=== PATIENT | female | born 1940 | race Caucasian/White ===

== ENCOUNTER 2020-02-23 19:50 | Inpatient (IN) | payer MEDICARE ==
[2020-02-23] MEDS ORDERED: SODIUM CHLORIDE 0.9% 1,000 ML IV STA (20:33)
[2020-02-23] MEDS ORDERED: METOCLOPRAMIDE 5 MG/ML 2 ML VIAL IVP STA (20:33)
--- NOTE | 2020-02-23 20:39 | ED ---
General Adult HPI - General Chief complaint: Weakness Stated complaint: Weakness Time Seen by Provider: 02/23/20 19:57 Source: EMS Mode of arrival: EMS Limitations: no limitations - History of Present Illness Initial comments: Dictation was produced using [employer] dictation software. please excuse any grammatical, word or spelling errors. This patient was cared for during a federal and state declared state of emergency secondary to Covid 19 Chief Complaint: 79-year-old female presents with nausea and weakness History of Present Illness: Is a 79-year-old female presents today with acute onset nausea and vomiting with weakness. Patient is a poor historian. She does report some mild epigastric abdominal tenderness. Patient was brought in by EMS after patient's called. Patient states that she feels as though the room is spinning she feels very sick to her stomach. The ROS documented in this emergency department record has been reviewed and confirmed by me. Those systems with pertinent positive or negative responses have been documented in the HPI. All other systems are other negative and/or noncontributory. PHYSICAL EXAM: General Impression: Alert and oriented x3, acute distress secondary to nausea, eyes closed HEENT: Normocephalic atraumatic, extra-ocular movements intact, pupils equal and reactive to light bilaterally, dry mucous membranes Cardiovascular: Heart regular rate and rhythm Chest: Able to complete full sentences, no retractions, no tachypnea Abdomen: abdomen soft, non-tender, non-distended, no organomegaly Musculoskeletal: Pulses present and equal in all extremities, no peripheral jonathan ma Motor: no focal deficits noted Neurological: CN II-XII grossly intact, right eye intranuclear ophthalmoplegia, no nystagmus Skin: Intact with no visualized rashes ED course: 79-year-old female presents with nausea, vomiting and acute weakness. Vital signs upon arrival are within acceptable limits. More history was obtained from who is currently in the waiting room by the nurse. reports the patient acutely became nauseous and vomiting. She had not eat dinner. She started on new medication that he does not know the name of it is. was interviewed at bedside. He states that patient was doing usual state of health when after dinner she became very nauseated. I did show patient's right eye deficit. He states that this is new and he's never noticed it before. According to interview with patient and it isn't entirely clear when patient's visual disturbance or medial gaze palsy of the right eye began. Laboratory evaluation obtained. CBC unremarkable. Coag panel is negative. Metabolic panel shows lactic acidosis 2.1. BUN of 20 with a creatinine 0.69. Rest of metabolic panel and labs are within acceptable limits. CT brain and CT angios the head and neck was obtained showing no acute processes. Case is discussed with Dr. Lam who is bulk station agent for neurology. His recommendation was to contact stroke neurologist for possible TPA administration. Case is discussed with Dr. Moscoso who didn't recommend TPA administration at this time considering that there is no clear time of onset when visual disturbance occurred. Furthermore, patient's primary complaint was nausea. At this point given the information we have after talking patient and risks outweigh the benefits of TPA administration. Patient be admitted with consultation to neurology. Patient given a dose of aspirin. Then antiemetics with improvement of her symptoms. EKG interpretation: Ventricular rate 83, normal sinus rhythm,. Interval 132, QRS 90, QTC 493. No ND prolongation, no QTC prolongation, no ST or T-wave changes noted. No old EKG for comparison. There is a Q-wave and inverted T in lead 3. Overall, this EKG is nonspecific - Related Data Allergies Allergy/AdvReac Type Severity Reaction Status Date / Time No Known Allergies Allergy Verified 02/23/20 20:02 Review of Systems ROS Statement: Those systems with pertinent positive or pertinent negative responses have been documented in the HPI. ROS Other: All systems not noted in ROS Statement are negative. Past Medical History Past Medical History: No Reported History History of Any Multi-Drug Resistant Organisms: None Reported Past Surgical History: No Surgical Hx Reported Past Psychological History: No Psychological Hx Reported Smoking Status: Never smoker Past Alcohol Use History: None Reported Past Drug Use History: None Reported General Exam Limitations: no limitations Course Vital Signs 02/23/20 19:59 Temperature 97 F L Pulse Rate 94 Respiratory 18 Rate Blood Pressure 162/72 O2 Sat by Pulse 96 Oximetry Medical Decision Making - Lab Data Result diagrams: 02/23/20 20:16 02/23/20 20:16 Lab Results 02/23/20 02/23/20 02/23/20 Range/Units 20:16 20:16 20:16 WBC 8.3 (3.8-10.6) k/uL RBC 4.90 (3.80-5.40) m/uL Hgb 14.9 (11.4-16.0) gm/dL Hct 43.3 (34.0-46.0) % MCV 88.3 (80.0-100.0) fL MCH 30.3 (25.0-35.0) pg MCHC 34.3 (31.0-37.0) g/dL RDW 12.5 (11.5-15.5) % Plt Count 224 (150-450) k/uL MPV 7.8 Neutrophils % 80 % Lymphocytes % 11 % Monocytes % 6 % Eosinophils % 1 % Basophils % 1 % Neutrophils # 6.6 (1.3-7.7) k/uL Lymphocytes # 0.9 L (1.0-4.8) k/uL Monocytes # 0.5 (0-1.0) k/uL Eosinophils # 0.1 (0-0.7) k/uL Basophils # 0.0 (0-0.2) k/uL PT 10.7 (9.0-12.0) sec INR 1.0 (<1.2) APTT 23.2 (22.0-30.0) sec Sodium 137 (137-145) mmol/L Potassium 4.0 (3.5-5.1) mmol/L Chloride 108 H (98-107) mmol/L Carbon Dioxide 20 L (22-30) mmol/L Anion Gap 9 mmol/L BUN 20 H (7-17) mg/dL Creatinine 0.69 (0.52-1.04) mg/dL Est GFR (CKD-EPI)AfAm >90 (>60 ml/min/1.73 sqM) Est GFR (CKD-EPI)NonAf 84 (>60 ml/min/1.73 sqM) Glucose 151 H (74-99) mg/dL Plasma Lactic Acid Prashant (0.7-2.0) mmol/L Calcium 9.3 (8.4-10.2) mg/dL Ionized Calcium Sandi 4.7 (4.5-5.3) mg/dL Magnesium 1.7 (1.6-2.3) mg/dL Total Bilirubin 1.1 (0.2-1.3) mg/dL AST 29 (14-36) U/L ALT 16 (4-34) U/L Alkaline Phosphatase 106 (38-126) U/L Troponin I (0.000-0.034) ng/mL Total Protein 7.1 (6.3-8.2) g/dL Albumin 4.0 (3.5-5.0) g/dL Urine Color Urine Appearance (Clear) Urine pH (5.0-8.0) Ur Specific Needles (1.001-1.035) Urine Protein (Negative) Urine Glucose (UA) (Negative) Urine Ketones (Negative) Urine Blood (Negative) Urine Nitrite (Negative) Urine Bilirubin (Negative) Urine Urobilinogen (<2.0) mg/dL Ur Leukocyte Esterase (Negative) Urine RBC (0-5) /hpf Ur Squamous Epith Cells (0-4) /hpf Urine Bacteria (None) /hpf Urine Mucus (None) /hpf 02/23/20 02/23/20 02/23/20 Range/Units 20:16 20:16 20:41 WBC (3.8-10.6) k/uL RBC (3.80-5.40) m/uL Hgb (11.4-16.0) gm/dL Hct (34.0-46.0) % MCV (80.0-100.0) fL MCH (25.0-35.0) pg MCHC (31.0-37.0) g/dL RDW (11.5-15.5) % Plt Count (150-450) k/uL MPV Neutrophils % % Lymphocytes % % Monocytes % % Eosinophils % % Basophils % % Neutrophils # (1.3-7.7) k/uL Lymphocytes # (1.0-4.8) k/uL Monocytes # (0-1.0) k/uL Eosinophils # (0-0.7) k/uL Basophils # (0-0.2) k/uL PT (9.0-12.0) sec INR (<1.2) APTT (22.0-30.0) sec Sodium (137-145) mmol/L Potassium (3.5-5.1) mmol/L Chloride (98-107) mmol/L Carbon Dioxide (22-30) mmol/L Anion Gap mmol/L BUN (7-17) mg/dL Creatinine (0.52-1.04) mg/dL Est GFR (CKD-EPI)AfAm (>60 ml/min/1.73 sqM) Est GFR (CKD-EPI)NonAf (>60 ml/min/1.73 sqM) Glucose (74-99) mg/dL Plasma Lactic Acid Prashant 2.1 H* (0.7-2.0) mmol/L Calcium (8.4-10.2) mg/dL Ionized Calcium Sandi (4.5-5.3) mg/dL Magnesium (1.6-2.3) mg/dL Total Bilirubin (0.2-1.3) mg/dL AST (14-36) U/L ALT (4-34) U/L Alkaline Phosphatase (38-126) U/L Troponin I <0.012 (0.000-0.034) ng/mL Total Protein (6.3-8.2) g/dL Albumin (3.5-5.0) g/dL Urine Color Yellow Urine Appearance Cloudy H (Clear) Urine pH 7.0 (5.0-8.0) Ur Specific Needles 1.016 (1.001-1.035) Urine Protein Trace H (Negative) Urine Glucose (UA) Negative (Negative) Urine Ketones Negative (Negative) Urine Blood Negative (Negative) Urine Nitrite Negative (Negative) Urine Bilirubin Negative (Negative) Urine Urobilinogen <2.0 (<2.0) mg/dL Ur Leukocyte Esterase Large H (Negative) Urine RBC 29 H (0-5) /hpf Ur Squamous Epith Cells 17 H (0-4) /hpf Urine Bacteria Rare H (None) /hpf Urine Mucus Many H (None) /hpf Disposition Clinical Impression: Internuclear ophthalmoplegia of right eye, Nausea Disposition: ADMITTED IP TO THIS HOSP Condition: Fair Referrals: Daniel Suarez MD [Primary Care Provider] - 1-2 days Decision Time: 22:27
[2020-02-23 20:50] LABS: Basophils % (A) 1 %; Eosinophils # (A) 0.1 k/uL (0-0.7); Eosinophils % (A) 1 %; HCT 43.3 % (34.0-46.0); HGB 14.9 gm/dL (11.4-16.0); Lymphocytes # (A) 0.9 k/uL (1.0-4.8); Lymphocytes % (A) 11 %; MCH 30.3 pg (25.0-35.0); MCHC 34.3 g/dL (31.0-37.0); MCV 88.3 fL (80.0-100.0); Mean Platelet Volume 7.8; Monocytes # (A) 0.5 k/uL (0-1.0); Monocytes % (A) 6 %; Neutrophils # (A) 6.6 k/uL (1.3-7.7); Neutrophils % (A) 80 %; Platelet Count 224 k/uL (150-450); RDW 12.5 % (11.5-15.5); WBC 8.3 k/uL (3.8-10.6)
[2020-02-23 20:56] LABS: Ionized Calcium 4.7 mg/dL (4.5-5.3)
[2020-02-23 21:02] LABS: ALT 16 U/L (4-34); AST 29 U/L (14-36); African American GFR (CKD) >90 (>60 ml/min/1.73 sqM); Alkaline Phosphatase 106 U/L (38-126); Anion Gap 9 mmol/L; Blood Urea Nitrogen 20 mg/dL (7-17); Calcium 9.3 mg/dL (8.4-10.2); Carbon Dioxide 20 mmol/L (22-30); Chloride 108 mmol/L (98-107); Glucose 151 mg/dL (74-99); Magnesium 1.7 mg/dL (1.6-2.3); Non-African American GFR(CKD) 84 (>60 ml/min/1.73 sqM); Partial Thromboplastin Time 23.2 sec (22.0-30.0); Prothrombin Time 10.7 sec (9.0-12.0); Sodium 137 mmol/L (137-145); Total Bilirubin 1.1 mg/dL (0.2-1.3); Total Protein 7.1 g/dL (6.3-8.2)
[2020-02-23 21:08] LABS: Appearance,Urine Cloudy (Clear); Bacteria,Urine Rare /hpf; Bilirubin,Urine Negative (Negative); Blood,Urine Negative (Negative); Color,Urine Yellow; Glucose,Urine (UA) Negative (Negative); Ketones,Urine Negative (Negative); Leukocyte Esterase,Urine Large (Negative); Mucus,Urine Many /hpf; Nitrite,Urine Negative (Negative); Protein,Urine Trace (Negative); RBC,Urine 29 /hpf (0-5); Specific Gravity,Urine 1.016 (1.001-1.035); Squamous Epithelial Cell,Urine 17 /hpf (0-4); Urobilinogen,Urine <2.0 mg/dL (<2.0)
--- NOTE | 2020-02-23 21:26 | CT ---
EXAMINATION TYPE: CT brain wo con DATE OF EXAM: 02/23/2020 COMPARISON: None HISTORY: Dizziness and weakness CT DLP: 1114.8 mGycm Automated exposure control for dose reduction was used. There is some cerebral cortical atrophy. There is mild white matter hypodensity in the frontal lobes bilaterally. There is no mass effect nor midline shift. There is no sign of intracranial hemorrhage. Calvarium is intact. IMPRESSION: Mild atrophy. Mild chronic small vessel ischemia. No acute intracranial abnormality.
--- NOTE | 2020-02-23 21:35 | CT ---
EXAMINATION TYPE: CT angio head neck DATE OF EXAM: 02/23/2020 COMPARISON: None HISTORY: Dizziness and weakness CT DLP: 598.6 mGycm Automated exposure control for dose reduction was used. CONTRAST: Performed with IV Contrast, patient injected with 65 mL of Isovue 370. There are 3-D post processed images. There is normal branching pattern of the great vessels on the aortic arch. There is bilateral arteria l flow in the subclavian arteries. There is arterial flow in the common internal and external carotid arteries bilaterally. There is wide patency of the carotid artery bifurcations. There is arterial fl ow in both vertebral arteries. There is arterial flow in the vertebrobasilar artery system. There is no evidence of carotid or vertebral artery aneurysm or dissection. There is arterial flow in the anterior middle and posterior cerebral arteries. There is no evidence o f intracranial aneurysm or neovascularity. There is no mass effect. I see no evidence of hemodynamic stenosis. IMPRESSION: Negative CT angiogram of the neck. Negative CT angiogram of the brain.
[2020-02-23] MEDS ORDERED: ONDANSETRON 4 MG/2 ML VIAL IVP STA (21:55)
[2020-02-23] MEDS ORDERED: ASPIRIN 81 MG PO STA (22:12)
[2020-02-23] MEDS ORDERED: NALOXONE 0.4 MG/ML 1 ML VIAL IV PRN (22:27)
[2020-02-23] MEDS: SODIUM CHLORIDE 0.9% 1,000 ML IV SCH (22:53)
[2020-02-24] MEDS ORDERED: ACETAMINOPHEN TAB 500 MG TAB PO PRN (00:33)
[2020-02-24] MEDS: MEMANTINE 10 MG TAB PO SCH ×2 (10:28→20:58)
[2020-02-24] MEDS: ATORVASTATIN 20 MG TAB PO SCH (10:28)
[2020-02-24] MEDS: amLODIPine 5 MG TAB PO SCH (10:28)
--- NOTE | 2020-02-24 12:19 | P.CNNES ---
History of Present Illness Consult date: 02/24/20 Requesting physician: Brandon Galan Reason for Consult: Internuclear ophthalmoplegia History of Present Illness: Patient is a 79-year-old female came to the hospital yesterday by ambulance at 7:50 PM for dizziness and near syncopal spell. 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 She was at work when at around 5:30 PM all of a sudden she felt weird, as something was wrong. She felt lightheaded, as if he'll pass out. She called her and her boss, and someone called the ambulance and patient was brought to the hospital. Vital signs on arrival was blood pressure 162/72, pulse [address] head showed mild atrophy. Mild chronic small vessel ischemia. CTA of head and neck was negative. No aneurysm or stenosis. No dissection. EKG shows normal sinus rhythm. CBC is normal. Chem-20 normal. Troponin negative. UA shows large amount of leukocyte esterase and rare bacteria. Patient takes amlodipine 5 mg, Lipitor 20 mg and memantine 10 mg twice a day at home. Patient denied any diplopia, did feel nauseous but no vomiting. She denied any slurred speech facial droop, denies any focal numbness tingling or weakness. Patient states her symptoms lasted for about 10-20 minutes. While in the ER, patient was noted to have right MARIO. Stroke neurologist was consulted, but patient was not considered a candidate for TPA, as the duration of onset of sym ptoms was not very clear, (patient's primary complaint was nausea rather than visual disturbance) and the risks were felt to outweigh the benefit. Patient never smoked, does not drink alcohol. She does have hypertension but denies diabetes. She does not take any antiplatelet medication at home. Patient tells me that about 1-1/2 months ago she was at [facility] in [place], [place] where she underwent "a lot of tests on her head" and she does not know the results. Patient does not remember why those tests were performed. I spoke to patient's son Vicente medina on the phone, who informed me that the visual symptoms are very new. She has no issues with the vision at all. He also told me that patient was seen by a neurologist Dr. Arlette Lewis in [place], [place], who diagnosed her with cognitive impairment. MRI was performed the results unavailable. Review of Systems Patient complains of mild headache, but denies any slurred speech facial droop numbness tingling focal weakness. Denies any chest pain shortness of breath wheezing or cough. Patient denies double vision although while examination she did have double vision as mentioned. No abdominal pain or diarrhea Past Medical History Past Medical History: No Reported History History of Any Multi-Drug Resistant Organisms: None Reported Past Surgical History: No Surgical Hx Reported Past Psychological History: No Psychological Hx Reported Smoking Status: Never smoker Past Alcohol Use History: None Reported Past Drug Use History: None Reported Medications and Allergies Home Medications Medication Instructions Recorded Confirmed Type Atorvastatin Calcium [Lipitor] 20 mg PO DAILY 02/23/20 02/23/20 History Cyanocobalamin [Vitamin B-12 1,000 mcg IM Q14D 02/23/20 02/23/20 History Injection] Ergocalciferol (Vitamin D2) 1,250 mcg PO Q7D 02/23/20 02/23/20 History [Vitamin D2] Memantine HCl 10 mg PO BID 02/23/20 02/24/20 History amLODIPine [Norvasc] 5 mg PO DAILY 02/23/20 02/23/20 History Allergies Allergy/AdvReac Type Severity Reaction Status Date / Time No Known Allergies Allergy Verified 02/23/20 20:02 Physical Examination - Vital Signs Vital Signs: Vital Signs Temp Pulse Resp BP Pulse Ox 02/24/20 06:30 98.8 F 68 17 139/74 99 02/23/20 22:00 78 17 136/85 99 02/23/20 19:59 97 F L 94 18 162/72 96 Intake and Output 02/23/20 02/24/20 02/24/20 22:59 06:59 14:59 Other: Weight 108.862 kg On examination patient is an elderly female, in no acute distress. Patient is alert and awake fairly well oriented. Speech and language functions are normal. Attention and concentration is intact, fund of knowledge is somewhat limited, as she does not remember details. May have probable underlying cognitive impairment. Detailed cognitive functions testing deferred. On cranial nerve examination pupils are round and reactive to light. No Ho rner's. No ptosis. Patient does have definite right MARIO. Patient gets double vision in the primary gaze and sometimes with a lateral gaze to the left. Visual carbajal are full on confrontation. Face is symmetric, tongue protrudes to the midline. Palatal elevation sensation normal. Hearing and shoulder shrug normal. Facial sensations normal. On muscle strength testing there is no pronator drift and the strength is normal in arms and legs distally and proximally. Reflexes are 1+ and plantars are downgoing. Sensory touch is equal with no neglect. No ataxia for [id number] testing. Tone and bulk of muscles normal. Gait deferred. There is no obvious bruit, S1 and S2 audible, chest is clear, abdominal soft nontender. No peripheral edema. Peripheral pulses present. Results - Laboratory Findings CBC and BMP: 02/23/20 20:16 02/23/20 20:16 Abnormal Lab Findings: Abnormal Labs 02/23/20 02/23/20 02/23/20 20:16 20:16 20:16 Lymphocytes # 0.9 L Chloride 108 H Carbon Dioxide 20 L BUN 20 H Glucose 151 H Plasma Lactic Acid Prashant 2.1 H* Urine Appearance Urine Protein Ur Leukocyte Esterase Urine RBC Ur Squamous Epith Cells Urine Bacteria Urine Mucus 02/23/20 20:41 Lymphocytes # Chloride Carbon Dioxide BUN Glucose Plasma Lactic Acid Prashant Urine Appearance Cloudy H Urine Protein Trace H Ur Leukocyte Esterase Large H Urine RBC 29 H Ur Squamous Epith Cells 17 H Urine Bacteria Rare H Urine Mucus Many H Assessment and Plan Assessment: * 79-year-old female, admitted with acute onset of dizziness, near syncope, nausea and diplopia. Examination reveals right MARIO, which is new finding. Symptoms are suggestive of possible CVA in the brainstem. * Hypertension * Hyperlipidemia * Mild cognitive impairment Plan: * Agree with aspirin 325 mg daily. Will add Plavix 75 mg daily for now pending further workup. * MRI of the brain to evaluate for an acute stroke. * 2-D echo with bubble study to rule out PFO. * Fasting a.m. lipid panel, hemoglobin A1c. * ESR, CRP * Telemetry monitoring. * Consider ophthalmology consultation. * Discussed with patient's son over the phone, in detail.
[2020-02-24] MEDS ORDERED: CLOPIDOGREL 75 MG TAB PO SCH (12:30)
[2020-02-24] MEDS ORDERED: diazePAM 5 MG TAB PO STA (12:59)
[2020-02-24] MEDS: ASPIRIN 325 MG TAB PO SCH (13:16)
--- NOTE | 2020-02-24 16:07 | MR ---
MR brain without contrast HISTORY: Acute cerebrovascular accident Multiplanar multisequence imaging through the brain Correlation CT brain 02/23/2020 There is no restricted diffusion. Cortical atrophy is present. There are normal vascular flow voids. Scattered and confluent hyperintensities present within the periventricular, pericallosal, subcortica l white matter. No hemorrhage or hydrocephalus. The corpus callosum, pituitary, cervical medullary ju nction, cerebellopontine angles are normal. Extensive inflammatory change present within the sphenoid sinus. The orbits show symmetric appearance. IMPRESSION: Age-related changes of atrophy and chronic small vessel ischemia. No subacute infarct is evident. Correlate for sphenoid sinusitis.
[2020-02-24] MEDS: SODIUM CHLORIDE 0.9% 1,000 ML IV SCH (20:58)
--- NOTE | 2020-02-24 22:05 | P.HPIM ---
History of Present Illness H&P Date: 02/24/20 Chief Complaint: CVA, severe diplopia, abnormal case the right eye, urgent h ypertension and 79-year-old female one of Dr. 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 Cardiovascular with lab did not show any abnormality urine showed large amount of leukocytes with Estrace and rare bacteria as a sign of UTI. Patient has taking her amlodipine and Lipitor along with Namenda daily doesn't skip her medication normally. At the time was seen in demurs department with the current abnormality consistent with a cranial nerve in the right side pulse he patient was out arrange for TPA at the time the stroke unit was consulted and decided not to do TPA at the time to continue medical management. Patient was seen Dr. charli villa neurology today who agree he might have slight bit of problem with a chronic nerve in the right side but no other neuro loss. Apparently patient was seen by a neurologist Arlette Barrett inpatient in [place] and had multiple testing including EEG carotid echo and MRI of the brain with no major finding at the time but apparently patient was placed on Namenda for cognitive impairment. No seizure or CVA was diagnosed at the time. Review of Systems CONSTITUTIONAL: Well-developed no acute respiratory distress. EYES: No icterus sclerae, no conjunctivitis. Positive diplopia slight abnormal nystagmus of the left eye EARS, NOSE, MOUTH, THROAT, and FACE: No sore throat, lymphadenopathy, carotid bruits or deformity. RESPIRATORY: No SOB cough or wheezes. CARDIOVASCULAR: No CP, Palpitation, PND, Orthopnea, or angina. Elevated blood pressure GASTROINTESTINAL: No Abd pain, Nausea or vomiting, no Diarrhea or constipation, No GI Bleed, no distention or masses. GENITOURINARY: Negative for Hematuria or UTI, no kidney stones. INTEGUMENT/BREAST: Negative for any muscular injury with mild osteoarthritis.. HEMATOLOGIC/LYMPHATIC: Negative for bleed or purpura. MUSCULOSKELTAL: Negative for Myalgia or arthralgia. NEURLOGICAL: No LOC, Sz or syncope, positive blurred vision with diplopia and abnormal nystagmus of the left side BEHAVIORAL/PSYCH: Negative. ENDOCRINE: Negative. Social history: Patient does not smoke, no alcohol abuse, no illicit drug use she does not use any CPAP or oxygen at home. 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 Family history: Patient has 3 children with no major medical problem, she had 2 sisters and one brother 100 sister from complication of diabetes or brother from sudden PA. Patient mother age 88 from old age her father dying in his late 70s from most likely CAD. Past Medical History Past Medical History: No Reported History History of Any Multi-Drug Resistant Organisms: None Reported Past Surgical History: No Surgical Hx Reported Past Psychological History: No Psychological Hx Reported Smoking Status: Never smoker Past Alcohol Use History: None Reported Past Drug Use History: None Reported Medications and Allergies Home Medications Medication Instructions Recorded Confirmed Type Atorvastatin Calcium [Lipitor] 20 mg PO DAILY 02/23/20 02/23/20 History Cyanocobalamin [Vitamin B-12 1,000 mcg IM Q14D 02/23/20 02/23/20 History Injection] Ergocalciferol (Vitamin D2) 1,250 mcg PO Q7D 02/23/20 02/23/20 History [Vitamin D2] Memantine HCl 10 mg PO BID 02/23/20 02/24/20 History amLODIPine [Norvasc] 5 mg PO DAILY 02/23/20 02/23/20 History Allergies Allergy/AdvReac Type Severity Reaction Status Date / Time No Known Allergies Allergy Verified 02/23/20 20:02 Physical Exam Vitals: Vital Signs Temp Pulse Pulse Resp BP BP Pulse Ox 02/24/20 12:16 97.9 F 79 18 150/85 96 02/24/20 11:45 97.8 F 74 17 144/85 96 02/24/20 06:30 98.8 F 68 17 139/74 99 02/23/20 22:00 78 17 136/85 99 02/23/20 19:59 97 F L 94 18 162/72 96 Intake and Output 02/23/20 02/24/20 02/24/20 22:59 06:59 14:59 Other: Weight 108.862 kg 108.862 kg General Appearance: Alert, cooperative, no distress, appears stated age. Neck HEENT: Supple, no lymphadenopathy, no thyroid enlargement, no carotid bruits. Significant abnormal nystagmus of the right eye with creatinine nerve pulse he Lungs: Clear to auscultation without crackles or wheezes no rhonchi, no deformity. Chest Wall: Chest wall normal expansion with deep inspiration no tenderness and no deformity was found on exam, no costochondral pain or discomfort. Heart: Regular rate and rhythm, S1, S2 normal, no murmur, rub or gallop. Back: Symmetric, no curvature, ROM normal, no CVA tenderness. Abdomen: Soft, non-tender, bowel sounds active all four quadrants, no masses, no organomegaly. Extremities: Extremities normal, atraumatic, no cyanosis or edema. Pulses: 2+ and symmetric. Skin: Skin color, texture, tugor normal, no rashes or lesions. Neurologic: Alert oriented x3 cranial nerves II through XII has slight effect) nerve on the right side with significant abnormal nystagmus,no motor deficit, no abnormal balance or gait. Results CBC & Chem 7: 02/23/20 20:16 02/23/20 20:16 Labs: Abnormal Lab Results - Last 24 Hours (Table) 02/23/20 02/23/20 02/23/20 Range/Units 20:16 20:16 20:16 Lymphocytes # 0.9 L (1.0-4.8) k/uL Chloride 108 H (98-107) mmol/L Carbon Dioxide 20 L (22-30) mmol/L BUN 20 H (7-17) mg/dL Glucose 151 H (74-99) mg/dL Plasma Lactic Acid Prashant 2.1 H* (0.7-2.0) mmol/L Urine Appearance (Clear) Urine Protein (Negative) Ur Leukocyte Esterase (Negative) Urine RBC (0-5) /hpf Ur Squamous Epith Cells (0-4) /hpf Urine Bacteria (None) /hpf Urine Mucus (None) /hpf 02/23/20 Range/Units 20:41 Lymphocytes # (1.0-4.8) k/uL Chloride (98-107) mmol/L Carbon Dioxide (22-30) mmol/L BUN (7-17) mg/dL Glucose (74-99) mg/dL Plasma Lactic Acid Prashant (0.7-2.0) mmol/L Urine Appearance Cloudy H (Clear) Urine Protein Trace H (Negative) Ur Leukocyte Esterase Large H (Negative) Urine RBC 29 H (0-5) /hpf Ur Squamous Epith Cells 17 H (0-4) /hpf Urine Bacteria Rare H (None) /hpf Urine Mucus Many H (None) /hpf Thrombosis Risk Factor Assmnt - DVT/VTE Prophylaxis DVT/VTE Prophylaxis: Mechanical Prophylaxis ordered - Choose All That Apply Each Risk Factor Represents 3 Points: Age 75 years or older Thrombosis Risk Factor Assessment Total Risk Factor Score: 3 Thrombosis Risk Factor Assessment Level: Moderate Risk Assessment and Plan Assessment: 1 TIA/CVA: With creatinine nerve pulse he of the right side, we will consult neurology, continue neuro exam every 2 hours for now, patient will need to go for an MRI of the brain for better view of the brain stem and the posterior fossa . Also patient will need to see an apigee developer for any element connected with eye only. 2 urgent hypertension: Patient remain on amlodipine 5 mg a day we will add hydralazine 25 mg every 6 hours as needed for systolic above 160. 3 hyperlipidemia: Remain on atorvastatin 20 mg a day. 4 cognitive impairment: Patient has been on Namenda 10 mg twice a day resume medication. 5 severe arthritis: Post bilateral total knee arthroplasty is doing well with it. 6 UTI: Will add the patient medication Rocephin 1 g daily and oral medication eventually. 7 GI prophylaxis: Patient be on Pepcid 20 mg daily. 8 DVT prophylaxis: Knee-high NEO hose and early mobilization be done was start patient on PTOT.
--- NOTE | 2020-02-25 08:47 | P.DS ---
Providers Date of admission: 02/23/20 22:28 Expected date of discharge: 02/26/20 Attending physician: Gerson Ba Consults: 02/23/20 22:29 Consult Physician Routine Consulting Provider: Charleen Diaz Consult Reason/Comments: intranuclear opthalmoplegia Do you want consulting provider notified?: Yes 02/24/20 10:01 Consult Physician Routine Consulting Provider: Gregorio Martínez Consult Reason/Comments: CN 6 palsy/CVA Do you want consulting provider notified?: Yes Primary care physician: Daniel Suarez [facility] Course: 79-year-old female one of Dr. 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 Cardiovascular with lab did not show any abnormality urine showed large amount of leukocytes with Estrace and rare bacteria as a sign of UTI. Patient has taking her amlodipine and Lipitor along with Namenda daily doesn't skip her medication normally. At the time was seen in demurs department with the current abnormality consistent with a cranial nerve in the right side pulse he patient was out arrange for TPA at the time the stroke unit was consulted and decided not to do TPA at the time to continue medical management. Patient was seen Dr. charli villa neurology today who agree he might have slight bit of problem with a chronic nerve in the right side but no other neuro loss. Apparently patient was seen by a neurologist Arlette Barrett inpatient in [place] and had multiple testing including EEG carotid echo and MRI of the brain with no major finding at the time but apparently patient was placed on Namenda for cognitive impairment. No seizure or CVA was diagnosed at the time. 02/24: Echocardiogram reveals EF of 55-60%, mild concentric left ventricular hypertrophy, mild mitral regurgitation, mild tricuspid regurgitation, borderline pulmonary artery hypertension. Sed rate is pending. CRP is less than 0.4. MRI of the brain reveals age-related changes of atrophy and chronic small vessel ischemia. No acute infarct is evident. Correlate for sphenoid sinusitis. Patient is on antibiotics for UTI which will be continued. Repeat lactic acid was 1.6. Triglycerides 66, cholesterol 126, LDL 69, HDL 43. Patient is followed by Dr. Lam and he would like consult with ophthalmology prior to discharge. There is no need for patient to have Lasix. Full-strength aspirin and was advised. 02/24: Patient was seen by Dr. Barron yesterday and suggestions had already been completed and on the chart. He will follow up with the patient in the office. Surprisingly, patient symptom has resolved. Patient will be discharged home today in stable condition. Hemoglobin A1c 5.5. Sed rate 5. TSH 3.670. DISCHARGE DIAGNOSES 1 internuclear ophthalmoplegia. 2 urgent hypertension 3 hyperlipidemia 4 cognitive impairment 5 severe generalized arthritis 6 UTI DISCHARGE PLAN Home. Impression and plan of care have been directed as dictated by the signing physician. Raeann Quinn nurse practitioner acting as scribe for signing physician. Patient Condition at Discharge: Good Plan - Discharge Summary Discharge Rx Participant: No New Discharge Prescriptions: New Cefuroxime Axetil [Ceftin] 500 mg PO BID 3 Days #6 tab Aspirin 325 mg PO DAILY #90 tab Continue Ergocalciferol (Vitamin D2) [Vitamin D2] 1,250 mcg PO Q7D Cyanocobalamin [Vitamin B-12 Injection] 1,000 mcg IM Q14D amLODIPine [Norvasc] 5 mg PO DAILY Atorvastatin Calcium [Lipitor] 20 mg PO DAILY Memantine HCl 10 mg PO BID Discharge Medication List Atorvastatin Calcium [Lipitor] 20 mg PO DAILY 02/23/20 [History] Cyanocobalamin [Vitamin B-12 Injection] 1,000 mcg IM Q14D 02/23/20 [History] Ergocalciferol (Vitamin D2) [Vitamin D2] 1,250 mcg PO Q7D 02/23/20 [History] Memantine HCl 10 mg PO BID 02/23/20 [History] amLODIPine [Norvasc] 5 mg PO DAILY 02/23/20 [History] Aspirin 325 mg PO DAILY #90 tab 02/25/20 [Rx] Cefuroxime Axetil [Ceftin] 500 mg PO BID 3 Days #6 tab 02/25/20 [Rx] Follow up Appointment(s)/Referral(s): Raj Burger MD [STAFF PHYSICIAN] - 03/09/20 8:30 am (office will send paper work ahead of time to fill out to see ) Daniel Suarez MD [Primary Care Provider] - 02/29/20 10:15 am Patient Instructions/Handouts: Cefuroxime (By mouth), Aspirin (By mouth) Discharge Disposition: HOME SELF-CARE
[2020-02-25] MEDS ORDERED: CYANOCOBALAMIN 1,000 MCG/ML 1 ML VIAL IM SCH (09:00)
--- NOTE | 2020-02-25 10:00 | ECHOF ---
Referral Reason:CVA MEASUREMENTS -------- HEIGHT: 167.6 cm WEIGHT: 108.9 kg BP: 150/85 IVSd: 1.3 cm (0.6 - 1.1) LVIDd: 3.9 cm (3.9 - 5.3) LVPWd: 1.4 cm (0.6 - 1.1) IVSs: 1.7 cm LVIDs: 2.6 cm LVPWs: 1.8 cm RVIDd: 4.6 cm (< 3.3) LAESV Index (A-L): 23.36 ml/m Ao Diam: 2.3 cm (2.0 - 3.7) AV Cusp: 1.4 cm (1.5 - 2.6) EPSS: 0.4 cm MV E Efrem: 0.84 m/s MV DecT: 237 ms MV A Efrem: 0.96 m/s MV E/A Ratio: 0.87 RAP: 5.00 mmHg RVSP: 33.79 mmHg MV EF SLOPE: 53.26 mm/s (70 - 150) MV EXCURSION: 18.11 mm (> 18.000) FINDINGS -------- Sinus rhythm. This was a technically adequate study. The left ventricular size is normal. There is mild concentric left ventricular hypertrophy. Overa ll left ventricular systolic function is normal with, an EF between 55 - 60 %. The diastolic fillin g pattern is normal for the age of the patient 9.49. The right ventricle is moderately enlarged. Normal LA size by volume 22+/-6 ml/m2. The right atrium is mildly enlarged. Contrast study was performed with 2 iv injections of 8 ccs of agitated normal saline, at rest, and wi th cough. Interatrial and interventricular septum intact. Negative agitated saline study for PFO. The aortic valve is trileaflet and appears structurally normal. There is no evidence of aortic regu rgitation. There is no evidence of aortic stenosis. Mild mitral regurgitation is present. Mild tricuspid regurgitation present. There is borderline pulmonary artery hypertension. The righ t ventricular systolic pressure, as measured by Doppler, is 33.79mmHg. Trace/mild (physiologic) pulmonic regurgitation. The aortic root size is normal. IVC Not well visulized. There is no pericardial effusion. CONCLUSIONS -------- 1. The left ventricular size is normal. 2. There is mild concentric left ventricular hypertrophy. 3. Overall left ventricular systolic function is normal with, an EF between 55 - 60 %. 4. The diastolic filling pattern is normal for the age of the patient 9.49 5. The right ventricle is moderately enlarged. 6. The right atrium is mildly enlarged. 7. Contrast study was performed with 2 iv injections of 8 ccs of agitated normal saline, at rest, and with cough. 8. Negative agitated saline study for PFO. 9. Mild mitral regurgitation is present. 10. Mild tricuspid regurgitation present. 11. There is borderline pulmonary artery hypertension. 12. The right ventricular systolic pressure, as measured by Doppler, is 33.79mmHg. 13. Trace/mild (physiologic) pulmonic regurgitation. WILLOW MACHINE TENDER: Suzanne Edward RDCS
[2020-02-25 10:16] LABS: C Reactive Protein <0.4 mg/dL (0.0-0.8); Chol/HDL Ratio 2.93; Cholesterol 126 mg/dL (0-200); LDL Cholesterol,Calculated 69.8 mg/dL (0.0-131.0)
[2020-02-25] MEDS: ASPIRIN 325 MG TAB PO SCH (11:40)
[2020-02-25] MEDS: amLODIPine 5 MG TAB PO SCH (11:40)
[2020-02-25] MEDS: FAMOTIDINE 20 MG TAB PO SCH (11:40)
[2020-02-25] MEDS: ATORVASTATIN 20 MG TAB PO SCH (11:41)
[2020-02-25] MEDS: MEMANTINE 10 MG TAB PO SCH ×2 (11:41→20:36)
--- NOTE | 2020-02-25 13:36 | P.PN ---
Subjective Progress Note Date: 02/25/20 Patient now complains of significant double vision in the primary gaze. Denies any nausea or vomiting. Denies headache. Objective - Vital Signs Vital signs: Vital Signs Temp 98.1 F 02/25/20 06:07 Pulse 69 02/25/20 06:07 Resp 16 02/25/20 06:07 BP 106/67 02/25/20 06:07 Pulse Ox 95 02/25/20 06:07 Intake & Output 02/24/20 02/25/20 02/25/20 18:59 06:59 18:59 Intake Total 590 236 Balance 590 236 Weight 108.862 kg Intake: Oral 590 236 Other: Voiding Method Toilet Toilet # Voids 1 2 - Exam Patient's mental status, speech and language functions are normal. No aphasia or dysarthria. Cranial nerves are significant for a right MARIO. Patient has diplopia in the primary gaze and looking to the left. No ptosis. Pupils are very equal, round and reacting to light, 4 mm down to 3 mm. Visual carbajal are full on confrontation. Face is symmetric and tongue protrudes to the midline. Palatal elevation and sensation normal. Hearing is slightly decreased, shoulder shrug normal. Muscle strength testing there is no pronator drift and the s trength is completely normal in the arms and legs. Reflexes are very symmetric, 1-1+ all over in the arms and legs including the ankles and plantars are downgoing. Sensory to touch is equal with no neglect. Patient has very mild dysmetria for [id number] and [id number] testing although appears normal on repeated testing. Tone and bulk of muscles normal. - Labs CBC & Chem 7: 02/23/20 20:16 02/23/20 20:16 Assessment and Plan Assessment: * Acute onset of right MARIO, unclear etiology. No evidence of acute stroke noted on the MRI of brain. Rule out thyroid ophthalmopathy. Patient has sphenoid sinusitis noted on CT/MRI, which uncertain is contributing. No evidence of Taylor Spivey variant of Guillain-Limon, as patient has preserved deep tendon reflexes (clinically produces ophthalmoplegia and ataxia). * Hypertension * Hyperlipidemia * Acute right sphenoid sinusitis. Plan: * MRI of the brain negative for acute stroke. Continue aspirin 325 mg, will DC Plavix. * 2-D echo showed mild concentric LVH. EF is 55-60%. Right atrium is mildly enlarged. Negative agitated saline study for PFO. * Fasting a.m. lipid panel showed cholesterol 126, LDL 69, HDL 43 and triglycerides 66. Continue Lipitor 20 mg. Hemoglobin A1c pending. * ESR 5, CRP <0.4 * Patient has acute right sphenoid sinusitis noted on computed tomography scan and MRI. Patient is on Rocephin. I would suggest completing a course of antibiotics for sinusitis. * Await ophthalmology consultation. * TSH rule out hyperthyroidism.
--- NOTE | 2020-02-25 13:51 | P.PN ---
Subjective Progress Note Date: 02/25/20 HISTORY OF PRESENT ILLNESS 79-year-old female one of Dr. 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 Cardiovascular with lab did not show any abnormality urine showed large amount of leukocytes with Estrace and rare bacteria as a sign of UTI. Patient has taking her amlodipine and Lipitor along with Namenda daily doesn't skip her medication normally. At the time was seen in demurs department with the current abnormality consistent with a cranial nerve in the right side pulse he patient was out arrange for TPA at the time the stroke unit was consulted and decided not to do TPA at the time to continue medical management. Patient was seen Dr. charli villa neurology today who agree he might have slight bit of problem with a chronic nerve in the right side but no other neuro loss. Apparently patient was seen by a neurologist Arlette Barrett inpatient in [place] and had multiple testing including EEG carotid echo and MRI of the brain with no major finding at the time but apparently patient was placed on Namenda for cognitive impairment. No seizure or CVA was diagnosed at the time. 02/24: Echocardiogram reveals EF of 55-60%, mild concentric left ventricular hypertrophy, mild mitral regurgitation, mild tricuspid regurgitation, borderline pulmonary artery hypertension. Sed rate is pending. CRP is less than 0.4. MRI of the brain reveals age-related changes of atrophy and chronic small vessel ischemia. No acute infarct is evident. Correlate for sphenoid sinusitis. Patient is on antibiotics for UTI which will be continued. Repeat lactic acid was 1.6. Triglycerides 66, cholesterol 126, LDL 69, HDL 43. Patient is followed by Dr. Lam and he would like consult with ophthalmology prior to discharge. There is no need for patient to have Lasix. Full-strength aspirin and was advised. REVIEW OF SYSTEMS CONSTITUTIONAL: Well-developed no acute respiratory distress. EYES: No icterus sclerae, no conjunctivitis. Positive diplopia slight abnormal nystagmus of the left eye EARS, NOSE, MOUTH, THROAT, and FACE: No sore throat, lymphadenopathy, carotid bruits or deformity. RESPIRATORY: No SOB cough or wheezes. CARDIOVASCULAR: No CP, Palpitation, PND, Orthopnea, or angina. Elevated blood pressure GASTROINTESTINAL: No Abd pain, Nausea or vomiting, no Diarrhea or constipation, No GI Bleed, no distention or masses. GENITOURINARY: Negative for Hematuria or UTI, no kidney stones. INTEGUMENT/BREAST: Negative for any muscular injury with mild osteoarthritis.. HEMATOLOGIC/LYMPHATIC: Negative for bleed or purpura. MUSCULOSKELTAL: Negative for Myalgia or arthralgia. NEURLOGICAL: No LOC, Sz or syncope, positive blurred vision with diplopia and abnormal nystagmus of the left side BEHAVIORAL/PSYCH: Negative. ENDOCRINE: Negative. PHYSICAL EXAMINATION General Appearance: Alert, cooperative, no distress, appears stated age. Neck HEENT: Supple, no lymphadenopathy, no thyroid enlargement, no carotid bruits. Significant abnormal nystagmus of the right eye with creatinine nerve pulse he Lungs: Clear to auscultation without crackles or wheezes no rhonchi, no deformity. Chest Wall: Chest wall normal expansion with deep inspiration no tenderness and no deformity was found on exam, no costochondral pain or discomfort. Heart: Regular rate and rhythm, S1, S2 normal, no murmur, rub or gallop. Back: Symmetric, no curvature, ROM normal, no CVA tenderness. Abdomen: Soft, non-tender, bowel sounds active all four quadrants, no masses, no organomegaly. Extremities: Extremities normal, atraumatic, no cyanosis or edema. Pulses: 2+ and symmetric. Skin: Skin color, texture, tugor normal, no rashes or lesions. Neurologic: Alert oriented x3 cranial nerves II through XII has slight effect) nerve on the right side with significant abnormal nystagmus,no motor deficit, no abnormal balance or gait. ASSESSMENT AND PLAN 1 internuclear ophthalmoplegia. Neurology consult appreciated. Patient started on full-strength aspirin. Plavix was discontinued. Echocardiogram as above. Ophthalmology consult requested. 2 urgent hypertension: Patient remain on amlodipine 5 mg a day we will add hydralazine 25 mg every 6 hours as needed for systolic above 160. 3 hyperlipidemia: Remain on atorvastatin 20 mg a day. 4 cognitive impairment: Patient has been on Namenda 10 mg twice a day resume medication. 5 severe arthritis: Post bilateral total knee arthroplasty is doing well with it. 6 UTI: Will add the patient medication Rocephin 1 g daily and oral medication eventually. 7 GI prophylaxis: Patient be on Pepcid 20 mg daily. 8 DVT prophylaxis: Knee-high NEO hose and early mobilization DISCHARGE PLAN Home. Impression and plan of care have been directed as dictated by the signing physician. Raeann Quinn nurse practitioner acting as scribe for signing physician. Objective - Vital Signs Vital signs: Vital Signs Temp 98.1 F 02/25/20 06:07 Pulse 69 02/25/20 06:07 Resp 16 02/25/20 06:07 BP 106/67 02/25/20 06:07 Pulse Ox 95 02/25/20 06:07 Intake & Output 02/24/20 02/25/20 02/25/20 18:59 06:59 18:59 Intake Total 590 236 Balance 590 236 Weight 108.862 kg Intake: Oral 590 236 Other: Voiding Method Toilet Toilet # Voids 1 2 - Labs CBC & Chem 7: 02/23/20 20:16 02/23/20 20:16
[2020-02-25 16:01] LABS: Hemoglobin A1C 5.5 % (4.0-6.0)
--- NOTE | 2020-02-25 19:04 | CONS ---
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 The patient stated that she was feeling very lightheaded and experienced nausea though she did not lose consciousness. The patient was brought to the hospital by ambulance and a CT scan of the head was performed. The patient was admitted to the floor and is currently resting comfortably. The patient's states that she has double vision, though is able to neutralize it by shifting her head to a mild right gaze position. PHYSICAL EXAM: Visual acuity without correction measured 20/50 bilaterally. The pupils are equal and reactive to light. There was no afferent defect. Extraocular movements demonstrated an impairment of adduction to the right eye and evidence of nystagmus was present in the left eye in extreme left gaze. All other extraocular movements appeared full with no evidence of entrapment or restriction in any gaze position. On penlight exam, the lids were normal. The conjunctiva was quiet. Both corneas were clear. The anterior chambers were deep and there was no evidence of medial opacity. Fundus exam revealed normal-appearing maculae vessels and discs. IMPRESSION: Right sided internuclear ophthalmoplegia. This patient has evidence of a right-sided ophthalmoplegia which has many possible etiologies. First and foremost, many of these are idiopathic and the cause is never found. Secondly, MS must be considered, but this usually occurs in younger age individuals. Viral infections are also noted to cause this, amongst them mono, varicella zoster, and any type of viral encephalitis. The patient does not appear to have any other symptoms of encephalitis, so it is not likely that this is what is occurring. Finally, granulomatous inflammatory conditions such as TB, syphilis, sarcoid, cryptococcus and others are also possible causations. Of note, I do not believe this is of a thyroid etiology, as thyroid could indeed cause restriction of adduction to 1 eye muscle, but since I am seeing definite evidence of nystagmus in the fellow eye, this appears unlikely. WORKUP: MRI of the brain should be performed, if it has not already, to rule out evidence of a CVA or any demyelinating disease. Blood work in addition to the standard CBC and blood panel, sedimentation rate should be performed and Minor level, Lyme antibody, and rule out syphilis, as well as a chest x-ray to determine whether there is evidence of sarcoid. Upon discharge, I would be happy to see this patient and would perform visual field testing on an outpatient basis. Thank you very much for this consultation. DONOVAN / JOELN: [id number] /
[2020-02-25] MEDS: SODIUM CHLORIDE 0.9% 1,000 ML IV SCH (22:29)
[2020-02-26 06:04] VITALS: BP 91/53; PULSE 69; RESP 16; TEMP 97.5
[2020-02-26] MEDS: ATORVASTATIN 20 MG TAB PO SCH (09:20)
[2020-02-26] MEDS: amLODIPine 5 MG TAB PO SCH (09:20)
[2020-02-26] MEDS: ASPIRIN 325 MG TAB PO SCH (09:20)
[2020-02-26] MEDS: FAMOTIDINE 20 MG TAB PO SCH (09:20)
[2020-02-26] MEDS: MEMANTINE 10 MG TAB PO SCH (09:20)
--- NOTE | 2020-02-26 12:07 | P.PN ---
Subjective Progress Note Date: 02/26/20 Patient states she is doing much better. Denies any new focal symptoms. Patient is ready to be discharged. Denies any nausea or vomiting. Objective - Vital Signs Vital signs: Vital Signs Temp 97.5 F L 02/26/20 06:03 Pulse 69 02/26/20 08:00 Resp 16 02/26/20 08:00 BP 91/53 02/26/20 06:03 Pulse Ox 92 L 02/26/20 06:03 Intake & Output 02/25/20 02/26/20 02/26/20 18:59 06:59 18:59 Intake Total 1378 810 236 Balance 1378 810 236 Intake: Intake, IV Titration 80 360 Amount Sodium Chloride 0.9% 1, 80 160 000 ml @ 20 mls/hr IV . Q24H SCOTT Rx#:[id number] cefTRIAXone 1 gm In 200 Sodium Chloride 0.9% 50 ml @ 100 mls/hr IVPB Q24H SCOTT Rx#:[id number] Oral 1298 450 [id number] Other: Voiding Method Toilet Toilet # Voids 2 2 - Exam Patient's mental status, speech and language functions are normal. No aphasia or dysarthria. Cranial nerve examination revealed intact extraocular muscles. The right MARIO has almost completely resolved. Face is symmetric. - Labs CBC & Chem 7: 02/23/20 20:16 02/23/20 20:16 Assessment and Plan Assessment: * Acute onset of right MARIO, unclear etiology. No evidence of acute stroke noted on the MRI of brain. Patient's MARIO seems to have resolved now. ? TIA versus ?? ophthalmoplegic migraine * Hypertension * Hyperlipidemia * Acute right sphenoid sinusitis. Plan: * MRI of the brain negative for acute stroke. Continue aspirin 325 mg. * CTA of head and neck negative, no aneurysm or stenosis. * 2-D echo showed mild concentric LVH. EF is 55-60%. Right atrium is mildly enlarged. Negative agitated saline study for PFO. * Fasting a.m. lipid panel showed cholesterol 126, LDL 69, HDL 43 and triglycerides 66. Continue Lipitor 20 mg. Hemoglobin A1c 5.5. * ESR 5, CRP <0.4 * Patient has acute right sphenoid sinusitis noted on computed tomography scan and MRI. Patient has received Rocephin in the hospital (x2 doses). Patient will be discharged on Ceftin. * Appreciate ophthalmology consultation. I did order Lyme, GABO-1 level, RPR, acetylcholine receptor antibody as per the recommendation. Informed patient to have these test results followed up by his primary physician. * TSH normal 3.670. * Patient being discharged. Patient will follow up with Dr. Burger on 03/09/2020 at 8:30 AM.
== END 2020-02-26 11:10 | disposition home or self-care (01) | DRG 92 ==
LOC: EC 19:50 → 6NMEDSUR 22:28 → 5NMEDONC 02-24 11:10
PROVIDERS: ADMIT Internal Medicine Geriatric Medicine; ATTEND Internal Medicine Geriatric Medicine
DX: H51.21 Internuclear ophthalmoplegia, right eye (principal); E87.2 Acidosis; N39.0 Urinary tract infection, site not specified; I73.9 Peripheral vascular disease, unspecified; E78.5 Hyperlipidemia, unspecified; G31.84 Mild cognitive impairment of uncertain or unknown etiology; I10 Essential (primary) hypertension; J01.30 Acute sphenoidal sinusitis, unspecified; M13.0 Polyarthritis, unspecified; I16.0 Hypertensive urgency; R11.0 Nausea; R55 Syncope and collapse; I08.1 Rheumatic disorders of both mitral and tricuspid valves; Z79.899 Other long term (current) drug therapy; Z96.653 Presence of artificial knee joint, bilateral; Z83.3 Family history of diabetes mellitus; Z82.49 Family history of ischemic heart disease and other diseases of the circulatory system
CPT/HCPCS: 36415; 70450; 70496; 70498; 70551; 80053; 80061; 81001; 82164; 82330; 83036; 83519; 83605; 83735; 84443; 84484; 85025; 85610; 85652; 85730; 86140; 86618; 86780; 93005; 93306; 96361; 96374; 96375; 99285